=== PATIENT | female | born 1975 | race Caucasian/White ===

== ENCOUNTER → 2020-02-16 | Outpatient (CLI) | payer OTHER ==
--- NOTE | 2020-02-16 17:07 | RAD ---
LUMBAR SPINE 2-3V History: Reason: ARTHRITIS IN BACK AND SPINE. TWO HERNIATED DISC. / Spl. Instructions: / History: Technique: 2 views lumbar spine. Comparison: None. Findings: Mild retrolisthesis L5 on S1. Normal vertebral body height. No fracture. Multilevel lumbar spondylosis with severe degenerative disc changes L5-S1. Lower lumbar facet arthropathy. Impression: 1. Multilevel lumbar spondylosis most prominent L5-S1. Electronically signed by: Fran Bentley DO (02/16/2020 5:04 PM) [facility]
== END ==
LOC: RAD 11:24
PROVIDERS: ATTEND Family Medicine
DX: M47.817 Spondylosis without myelopathy or radiculopathy, lumbosacral region (principal)
CPT/HCPCS: 72100